=== PATIENT | female | born 2000 | race Caucasian/White ===

== ENCOUNTER 2023-10-22 05:59 | Emergency (ER) | payer BC ==
[~2023-10-22] VITALS: Ht 167.6 cm; Wt 143.0 kg
[2023-10-22 06:08] VITALS: O2SAT 96
[2023-10-22 06:25] LABS: CLARITY URINE CLOUDY (CLEAR); COLOR URINE DARK YELLOW (YELLOW); GLUCOSE URINE NEGATIVE (NEGATIVE); KETONES URINE TRACE (NEGATIVE); LEUKOCYTE ESTERASE URINE 1+ (NEGATIVE); NITRITE URINE NEGATIVE (NEGATIVE); OCCULT BLOOD URINE NEGATIVE (NEGATIVE); PROTEIN URINE TRACE (NEGATIVE); SPECIFIC GRAVITY URINE 1.035 (1.005-1.030)
[2023-10-22 06:54] LABS: MUCUS URINE 3+ /lpf (< = 2+); SQUAMOUS EPITHELIAL CELL URINE 2+ /lpf (RARE/1+)
[2023-10-22 06:56] LABS: BACTERIA URINE 2+
[2023-10-22] MEDS: DOXYCYCLINE HYCLATE 100MG CAPSULE PO ONE (07:17)
[2023-10-22] MEDS ORDERED: DOXY150T9 PO (07:17)
[2023-10-22] MEDS ORDERED: RALT400T PO (07:17)
[2023-10-22] MEDS ORDERED: VIRE PO (07:17)
[2023-10-22] MEDS ORDERED: ONDA4TAB50 PO (07:17)
[2023-10-22] MEDS: CEFTRIAXONE SODIUM 1G VIAL IM ONE (07:17)
[2023-10-22] MEDS ORDERED: EMTR200C3 PO (07:17)
[2023-10-22 07:57] LABS: CHLORIDE 104 mEq/L (98-107); POTASSIUM 3.7 mEq/L (3.5-5.1); SODIUM 140 mEq/L (136-145)
[2023-10-22 07:58] LABS: CARBON DIOXIDE 27 mEq/L (21-32)
[2023-10-22 07:59] LABS: CALCIUM 9.5 mg/dL (8.7-10.4)
[2023-10-22 08:04] LABS: CREATININE 0.7 mg/dL (0.6-1.0); GLUCOSE 83 mg/dL (70-105); UREA NITROGEN BLOOD 14 mg/dL (9-23)
[2023-10-22 08:05] LABS: ALANINE AMINOTRANSFERASE 46 IU/L (10-49); ALBUMIN 4.5 g/dL (3.2-4.8); ASPARTATE AMINOTRANSFERASE 37 IU/L (<34)
[2023-10-22 08:06] LABS: BASOPHILS % 0.5 % (0.0-2.0); BILIRUBIN DIRECT 0.1 mg/dL (<=3.0); BILIRUBIN TOTAL 0.4 mg/dL (0.1-1.0); EOSINOPHILS % 0.9 % (0.0-5.0); HEMATOCRIT. 42.6 % (36.0-48.0); HEMOGLOBIN. 14.1 g/dL (12.0-16.0); LYMPHOCYTES % 19.1 % (20.0-50.0); MEAN CORPUSCULAR HEMOGLOBIN 28.9 pg (28.0-32.0); MEAN CORPUSCULAR HGB CONC 33.1 g/dL (31.0-37.0); MEAN CORPUSCULAR VOLUME 87.2 fL (81.0-99.0); MEAN PLATELET VOLUME 6.9 fl (7.4-10.4); MONOCYTES % 6.6 % (2.0-8.0); NEUTROPHILS % 72.9 % (40.0-76.0); PLATELET 389 x1000/uL (130-400); PROTEIN TOTAL 7.8 g/dL (6.0-8.3); RED BLOOD CELL COUNT 4.88 mill/uL (4.2-5.4); RED CELL DISTRIBUTION WIDTH 16.1 % (11.6-14.6); WHITE BLOOD COUNT 10.8 x1000/uL (4.5-11.0)
[2023-10-22 08:14] VITALS: BP 138/89; PULSE 98; RESP 20; TEMP 97.9
[2023-10-24 04:11] LABS: CHLAMYDIA TRACHOMATIS NAA Negative (Negative); NEISSERIA GONORRHOEAE NAA Negative (Negative)
== END 2023-10-22 08:23 | disposition home or self-care (01) ==
LOC: ER 06:20
DX: A64 Unspecified sexually transmitted disease (principal)
CPT/HCPCS: 87491; 87591; 80076; 80048; 81003; 85025; 87086; 87210; 87077; 36415; 96372; 99284; J0696; Z7610